=== PATIENT | male | born 2000 | race Hispanic/Latino ===

== ENCOUNTER → 2021-02-04 | Outpatient (CLI) | payer OTHER ==
[~2021-02-04] MED LIST: METHACHOLINE KIT (J7674) INH ONE
--- NOTE | 2021-02-04 09:13 | PFTRPT ---
Site: [facility], [address] [place] [address], [id number] ID: [id number] Name: ANTONIA ANN Visit Date: 02/04/2021 Second ID: [id number] Referring Doctor: Wanda Ramirez Reviewing Doctor: Miguelangel Harper MD Industrial Garage Servicer: Lauren BOURNE RRT Age: 20 : 2000 Sex: Male Race: Height: 68.00 Inches Weight: 130.00 Lbs BSA: 1.70 Order IDs: [id number] Requested Test(s): <RESP-PFT.PFT> Diagnosis: J45.909 test meet the ATS standards for acceptability and repeatability. Review Status: Not Reviewed Pre-Bronch Post-Bronch Pred Actual %Pred Actual %Chng SPIROMETRY FVC (L) 5.18 4.70 90 FEV1 (L) 4.45 3.99 89 FEV1/FVC (%) 86 85 98 FEF 25% (L/sec) 7.68 7.45 97 FEF 50% (L/sec) 5.44 4.43 81 FEF 75% (L/sec) 2.19 2.21 100 FEF 25-75% (L/sec) 4.98 4.00 80 FEF Max (L/sec) 9.66 8.80 91 FIVC (L) 4.46 FIF 50% (L/sec) 5.78 4.99 86 FIF Max (L/sec) 5.31 MVV (L/min) 185 148 79 Expiratory Time (sec) 6.34 Back Extrap Vol (L) 0.17 Time To FEFmax (sec) 0.102 LUNG VOLUMES SVC (L) 5.17 4.45 86 IC (L) 3.42 2.79 81 ERV (L) 1.75 1.66 94 TGV (L) 3.04 3.46 113 RV (Pleth) (L) 1.29 1.80 139 TLC (Pleth) (L) 6.46 6.25 96 RV/TLC (Pleth) (%) 20 29 144 DIFFUSION DLCOunc (ml/min/mmHg) 36.93 32.07 86 DLCOcor (ml/min/mmHg) 36.93 30.48 82 DL/VA (ml/min/mmHg/L) 5.72 4.90 85 VA (L) 6.46 6.21 96 BHT (sec) 10.71 IVC (L) 4.15 TLC (SB) (L) 6.36 AIRWAYS RESISTANCE Raw (cmH2O/L/s) 1.45 0.86 59 Gaw (L/s/cmH2O) 1.03 1.19 115 sRaw (cmH2O*s) 4.76 3.33 69 sGaw (1/cmH2O*s) 0.20 0.31 153 BLOOD GASES Hgb (gm/dL) 16.6
--- NOTE | 2021-02-04 10:01 | PFTRPT ---
Site: [facility], [address] [place], [address] ID: [id number] Name: ANTONIA ANN Visit Date: 02/04/2021 Second ID: [id number] Referring Doctor: Wanda Ramirez Reviewing Doctor: Miguelangel Harper MD Insulation Helper: Lauren BOURNE, TREVON Age: 20 : 2000 Sex: Male Race: Height: 68.00 Inches Weight: 130.00 Lbs BSA: 1.70 Order IDs: [id number] Requested Test(s): <RESP-PFT.METH CHAL> Diagnosis: J45.909 of albuterol for post bronchodilator. Review Status: Not Reviewed Pre-Bronch Post-Bronch Pred Actual %Pred Actual %Chng SPIROMETRY FVC (L) 5.18 4.76 91 4.67 -1 FEV1 (L) 4.45 3.92 88 3.72 -5 FEV1/FVC (%) 86 82 95 80 -3 FEF 25% (L/sec) 7.68 6.87 89 7.34 6 FEF 50% (L/sec) 5.44 4.15 76 3.79 -8 FEF 75% (L/sec) 2.19 1.97 90 1.46 -26 FEF 25-75% (L/sec) 4.98 3.71 74 3.22 -13 FEF Max (L/sec) 9.66 8.92 92 8.24 -7 FIVC (L) 4.88 4.64 -4 FIF 50% (L/sec) 5.78 4.75 82 5.27 10 FIF Max (L/sec) 5.18 6.44 24 Expiratory Time (sec) 6.69 6.69 Back Extrap Vol (L) 0.14 0.17 23 Time To FEFmax (sec) 0.080 0.102 27
== END ==
LOC: EDSEX 08:00 → M CARPUL 08:15
PROVIDERS: ATTEND Nurse Practitioner Adult Health
DX: J45.909 Unspecified asthma, uncomplicated (principal)
CPT/HCPCS: 88738; 94010; 94070; 94726; 94729; J7674